=== PATIENT | male | born 1970 | race Caucasian/White ===

== ENCOUNTER 2017-11-25 05:56 | Emergency (ER) | payer OTHER ==
[~2017-11-25] VITALS: Ht 193 cm; Wt 104.3 kg
[2017-11-25] MEDS ORDERED: CLINDAMYCIN 600MG/D5W 50ML 50 ML IV ONE (06:15)
[2017-11-25] MEDS ORDERED: CLINDAMYCIN PHOS 600 MG/ 4 ML VIAL IM ONE (06:30)
== END 2017-11-25 06:45 | disposition home or self-care (01) ==
LOC: FSED 05:56
DX: M79.644 Pain in right finger(s) (principal); L03.011 Cellulitis of right finger; Z86.14 Personal history of Methicillin resistant Staphylococcus aureus infection
CPT/HCPCS: 99283

== ENCOUNTER 2019-06-17 12:49 | Observation (INO) | payer SELFPAY ==
[~2019-06-17] VITALS: Ht 193 cm; Wt 99.8 kg
--- OUTSIDE RECORDS SUMMARY | 2019-06-17 12:53 | XMS REPORT ---
Author Author [facility] Address Unknown Phone Unavailable Care Team Providers Care Medicaid Billing Clerk Name Role Phone Unavailable Unavailable Payers Payer Name Policy Type Policy Number Effective Date Expiration Date Problems This patient has no known problems. Allergies, Adverse Reactions, Alerts Allergy Name Allergy Type Status Severity Reaction(s) Onset Date Inactive Date Treating Clinician Comments No Known Allergies DA Active U 2014-11-13 00:00:00 Medications This patient has no known medications. Results Test Description Test Time Test Comments Text Results Atomic Results Result Comments INTERVERTEBRAL DISC 2018-03-14 16:08:00 RUN DATE: 03/14/18 [facility] PAGE 1 RUN TIME: 1608 Specimen Inquiry RUN USER: INTERFACE PATIENT: EDILIA CERVANTES ERNA LOC: [facility] U #: [id number] AGE/SX: 47/M ROOM: 2049 RE03/12/18REG DR: Jeo Zabala MD : 68 BED: A DIS: 03/13/18 STATUS: DIS Olga TLOC: SPEC #: [id number] RECD: 03/13/18 STATUS: SOUT REQ #: [id number] CHRIS: 03/12/18- SUBM DR: Joe Zabala MD ENTERED: 03/13/18 SP TYPE: INT DISC OTHR DR: Arturo Webb DO ORDERED: GROSS COPIES TO: Arturo Webb DO [address] [place], [place] [id number] Joe Zabala MD [address] [place] [address] PROCEDURES: GROSS (03/14/18-1139) TISSUES: 1. CERVICAL VERTEBRA, NOS - C4-5 DISC 2. 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 It consists of multiple lan-pink to brown fragments of tissue and possible bone measuring 4.0 X 3.4 X 1.0 cm in aggregate. Tanker Serviceman sections are submitted as (1) for decalcification. The second specimen is received fresh labeled with the patient's name and identified as "cervical hardware ID only". It consists of a metallic plate and ten metallic screws. The plate measures 4.6 X 2.0 X 0.3 cm. The plate is labeled "[id number]". Four screws each measure 2.5 cm in length by 0.5 cm in diameter. One screw measures 1.7 cm in length by 0.5 cm in diameter. Four smallest screws each measure 0.5 cm in length by 0.3 cm in diameter. The specimen is for gross identification only. GROSS PERFORMED AT [facility] [address] [place] [id number] [phone] MICROSCOPIC MICROSCOPIC PERFORMED AT [facility] All of the stains, including any controls performed, stain appropriately. [facility] [address] [place] [phone])[phone] PERFORMING SITE Diagnosis performed at: [facility] [address] [place] [address] ---- Signed SIGNATURE ON FILE Telly Guerra 03/14/18 1608 END OF REPORT
[2019-06-17] MEDS ORDERED: CLINDAMYCIN PHOS 900MG/ 50ML 50 ML IV STA (13:07)
[2019-06-17] MEDS ORDERED: MORPHINE SULFATE 2 MG/ML SYR 1ML IV PRN (13:15)
[2019-06-17] MEDS ORDERED: ONDANSETRON HCL INJ 2MG/ML 2ML 2 MG/ML VIAL IV PRN (13:15)
[2019-06-17 13:24] LABS: BASOPHILS % 0.4 % (0.0-1.0); EOSINOPHILS # (AUTO) 0.2 (0.0-0.4); EOSINOPHILS % 2.3 % (0.0-6.0); HEMATOCRIT 39.3 % (38.2-49.6); LYMPHOCYTES % 19.7 % (18.0-39.1); MEAN CORPUSCULAR HEMOGLOBIN 29.2 pg (28-32); MEAN CORPUSCULAR HGB CONC 33.1 g/dL (31-35); MEAN CORPUSCULAR VOLUME 88.3 fL (81-99); MONOCYTES # (AUTO) 0.6 (0.2-0.8); MONOCYTES % 5.6 % (4.4-11.3); NEUTROPHILS # (AUTO) 7.2 (2.1-6.9); NEUTROPHILS % 71.7 % (38.7-80.0); PLATELET COUNT 197 x10e3/uL (140-360); RED BLOOD COUNT 4.45 x10e6/uL (4.3-5.7); RED CELL DISTRIBUTION WIDTH 14.3 % (11.7-14.4)
[2019-06-17] MEDS: MORPHINE SULFATE INJ 4 MG/ML INJ 1ML IV PRN ×2 (13:29→18:10)
[2019-06-17 13:38] LABS: ANION GAP 8.9 mmol/L (8-16); BLOOD UREA NITROGEN 8 mg/dL (7-26); BUN/CREATININE RATIO 9 (6-25); CALCIUM 9.2 mg/dL (8.4-10.2); CARBON DIOXIDE 27 mmol/L (22-29); CHLORIDE 106 mmol/L (98-107); EST GLOMERULAR FILTRATION RATE > 60 ML/MIN (60-); GLUCOSE 187 mg/dL (74-118); POTASSIUM 3.9 mmol/L (3.5-5.1); SODIUM 138 mmol/L (136-145)
--- NOTE | 2019-06-17 14:09 | Diagnostic Imaging Report ---
EXAM: HAND 3+ VIEWS RIGHT DATE: 06/17/2019 1:06 PM INDICATION: Hand pain, crush injury COMPARISON: None FINDINGS: There is no evidence for acute fracture or dislocation. Bony mineralization is within normal limits. No focal lytic or blastic abnormality is identified. The surrounding soft tissues are unremarkable without evidence for radiopaque foreign body. IMPRESSION: No acute radiographic abnormality identified within the right hand. Signed by: Dr. Rene White MD on 06/17/2019 2:07 PM
[2019-06-17 15:38] VITALS: BP 118/63
[2019-06-17] MEDS: VANCOMYCIN 1GM/NS 250 ML 250 ML IV SCH (18:10)
[2019-06-17] MEDS ORDERED: SODIUM CHLORIDE 0.9% 250ML 250 ML ONE (18:11)
--- NOTE | 2019-06-17 18:50 | NUR ---
Pt received from ER. Pt is aox4 and able to verbalize needs. Pt is ambulatory. He is being admitted for cellulitis to right hand. Dr. Eisenberg has consulted and notified. Notified Dr. Durant of pt arrival.
[2019-06-17 21:26] VITALS: BP 128/63
[2019-06-17 21:44] VITALS: BP 128/63
[2019-06-18] VITALS (7 sets, daily range): BP systolic 120–147; BP diastolic 58–103
[2019-06-18 06:15] LABS: BASOPHILS % 0.5 % (0.0-1.0); EOSINOPHILS # (AUTO) 0.3 (0.0-0.4); EOSINOPHILS % 3.9 % (0.0-6.0); HEMATOCRIT 38.5 % (38.2-49.6); HEMOGLOBIN 12.4 g/dL (14.0-18.0); LYMPHOCYTES # (AUTO) 2.5 (1.0-3.2); LYMPHOCYTES % 30.3 % (18.0-39.1); MEAN CORPUSCULAR HEMOGLOBIN 28.7 pg (28-32); MEAN CORPUSCULAR HGB CONC 32.2 g/dL (31-35); MEAN CORPUSCULAR VOLUME 89.1 fL (81-99); MONOCYTES # (AUTO) 0.7 (0.2-0.8); MONOCYTES % 9.1 % (4.4-11.3); NEUTROPHILS # (AUTO) 4.6 (2.1-6.9); PLATELET COUNT 197 x10e3/uL (140-360); RED BLOOD COUNT 4.32 x10e6/uL (4.3-5.7); RED CELL DISTRIBUTION WIDTH 14.6 % (11.7-14.4)
[2019-06-18] MEDS: VANCOMYCIN 1GM/NS 250 ML 250 ML IV SCH ×2 (06:39→18:36)
--- NOTE | 2019-06-18 07:30 | NUR ---
bedside shift report received from night order selector RN. pt awake, alert, no complaints at this time. no signs of distress.
--- NOTE | 2019-06-18 15:45 | NUR ---
GAVE PACKET OF INFORMATION WITH COMM[employer]ITY [employer] FOR ASSISTANCE WITH LOW TO NO INCOME TO PATIENT. RESOURCES THAT PATIENT MAY BE ABLE TO FOLLOW UP UPON DISCHARGE. PT EDUCATED ON EACH RESOURCE AND UNDERSTANDING HOW TO FOLLOW UP TO SEE IF QUALIFIED FOR EACH RESOURCE.
--- NOTE | 2019-06-18 16:06 | Consultation ---
DATE OF CONSULTATION: 06/18/2019 Physician requesting a consultation is Dr. Orlando Durant. Consultation requested to Ashkan Castle MD, Hand Surgery. HISTORY OF PRESENT ILLNESS: The patient is a 48-year-old right-hand dominant male, who states that on Saturday, June 13, he sustained a laceration on the right index finger MPJ on a stainless steel/metal gate. The patient states that he cleansed the area and then the following day, he noticed that it was somewhat red and swollen. Over the past several days, the redness and the swelling have increased and the patient noticed a red streak going up the hand and the arm. The patient was seen in the emergency room yesterday, where he was diagnosed with lymphangitis. The patient was admitted and started on intravenous antibiotics and consultation regarding optimal surgical management is now requested. LABORATORY DATA: White blood cell count on admission was 9.97 and today is 8.15. Radiographs show no acute or chronic bony abnormalities. No foreign bodies. PAST MEDICAL HISTORY: Noncontributory to the current problem. PAST SURGICAL HISTORY: Noncontributory to the current problem. PHYSICAL EXAMINATION: CURRENT VITAL SIGNS: On the patient are that he is afebrile and the BP is 135/85. EXTREMITIES: There is a dry adherent eschar over the dorsal aspect of the right index finger MPJ. It is dry adherent and there is no separation nor purulence. There is some surrounding erythema and some swelling over the dorsum of the MPJ. Flexion and extension are intact. There is no erythematous streaking. This morning, the patient states that it resolved overnight. IMPRESSION: Lymphangitis, right upper extremity. PLAN: The patient is currently on IV antibiotics and appears to be clinically improving. There is no evidence of abscess formation nor any need for surgical drainage at this time. Please re-consult if necessary. Your expression of professional confidence is greatly appreciated. Ashkan Castle MD ER/MODL /[id number]
[2019-06-18] MEDS: MORPHINE SULFATE INJ 4 MG/ML INJ 1ML IV PRN (22:04)
[2019-06-19 00:39] VITALS: BP 124/75
[2019-06-19 04:18] VITALS: BP 106/73
[2019-06-19] MEDS: VANCOMYCIN 1GM/NS 250 ML 250 ML IV SCH (06:45)
[2019-06-19 07:26] VITALS: BP 121/79
--- NOTE | 2019-06-19 08:03 | NUR ---
BEDSIDE SHIFT REPORT RECEIVED FROM ELECTRICAL PROSPECTING OPERATOR RN. PT SLEEPING, EASILY AROUSED, ORIENTED X3, IN STABLE CONDITION. NO SIGNS OF DISTRESS. NO COMPLAINTS AT THIS TIME. WILL CONTINUE TO MONITOR.
[2019-06-19 08:05] VITALS: BP 121/79
[2019-06-19] MEDS ORDERED: DOXYCYCLINE HY100 MG PO (09:56)
== END 2019-06-19 10:41 | disposition home or self-care (01) ==
LOC: ER 12:49 → ERHOLD 13:09 → MED/SURG3 15:41
DX: L03.123 Acute lymphangitis of right upper limb (principal); L03.113 Cellulitis of right upper limb; R59.0 Localized enlarged lymph nodes; Z72.0 Tobacco use; Z82.49 Family history of ischemic heart disease and other diseases of the circulatory system
CPT/HCPCS: 36415 ×3; 73130; 80048; 80202; 85025 ×2; 96360; 99284; G0378 ×3; J2270 ×2; J2405; J3370 ×3; J7050

== ENCOUNTER 2021-07-13 15:08 | Observation (INO) | payer OTHER ==
[~2021-07-13] VITALS: Ht 193 cm; Wt 99.8 kg
[~2021-07-13 15:08] MED LIST: DOXYCYCLINE HY100 MG PO
[2021-07-13 15:32] LABS: BASOPHILS # (AUTO) 0.1 (0.0-0.1); EOSINOPHILS # (AUTO) 0.1 (0.0-0.4); EOSINOPHILS % 1.1 % (0.0-6.0); HEMATOCRIT 44.6 % (38.2-49.6); HEMOGLOBIN 15.1 g/dL (14.0-18.0); LYMPHOCYTES # (AUTO) 2.3 (1.0-3.2); MEAN CORPUSCULAR HGB CONC 33.9 g/dL (31-35); MEAN CORPUSCULAR VOLUME 85.8 fL (81-99); MONOCYTES # (AUTO) 0.8 (0.2-0.8); MONOCYTES % 8.1 % (4.4-11.3); NEUTROPHILS # (AUTO) 6.9 (2.1-6.9); NEUTROPHILS % 67.6 % (38.7-80.0); PLATELET COUNT 183 x10e3/uL (140-360); RED CELL DISTRIBUTION WIDTH 13.5 % (11.7-14.4)
[2021-07-13] MEDS ORDERED: SODIUM CHLORIDE 0.9% 1000ML 1,000 ML IV ONE ×2 (15:45→16:30)
[2021-07-13] MEDS: ONDANSETRON HCL INJ 2MG/ML 2ML 2 MG/ML VIAL IV PRN ×2 (15:49→16:39)
[2021-07-13 15:54] LABS: ALBUMIN 4.2 g/dL (3.5-5.0); ALBUMIN/GLOBULIN RATIO 1.4 (0.8-2.0); ANION GAP 12.1 mmol/L (8-16); CALCIUM 10.6 mg/dL (8.4-10.2); CREATININE, SERUM 1.47 mg/dL (0.72-1.25); POTASSIUM 4.1 mmol/L (3.5-5.1)
[2021-07-13] MEDS ORDERED: SODIUM CHLORIDE 0.9% 50ML 50 ML ONE (16:28)
[2021-07-13] MEDS ORDERED: IOPAMIDOL 370 MG/ML 200 ML INFUS..BTL INJ ONE (16:28)
[2021-07-13] MEDS ORDERED: Morphine 4mg Syringe 4 MG/ML INJ IV PRN (17:00)
[2021-07-13] MEDS ORDERED: METOCLOPRAMIDE HCL 10 MG TAB PO ONE (17:00)
[2021-07-13] MEDS ORDERED: ONDANSETRON HCL INJ 2MG/ML 2ML 2 MG/ML VIAL IV PRN (17:15)
[2021-07-13] MEDS ORDERED: SODIUM CHLORIDE 0.9% 1000ML 1,000 ML IV SCH (17:15)
[2021-07-13] MEDS ORDERED: HYDROMORPHONE 1MG/1ML INJ IV PRN (17:15)
[2021-07-13 18:15] VITALS: BP 132/89
[2021-07-13] MEDS ORDERED: CLONIDINE HCL 0.1 MG TAB PO PRN (18:15)
[2021-07-13] MEDS ORDERED: AMBIEN10 MG PO (18:19)
[2021-07-13] MEDS ORDERED: ADDERALL 20 MG20 MG PO (18:21)
[2021-07-13] MEDS: SODIUM BICARBONATE 8.4% 50 ML in SODIUM CHLORIDE 0.45% 1,000 ML IV SCH (18:39)
[2021-07-13 20:08] VITALS: BP 126/89
[2021-07-13 20:12] VITALS: BP 126/89
[2021-07-14] MEDS: SODIUM BICARBONATE 8.4% 50 ML in SODIUM CHLORIDE 0.45% 1,000 ML IV SCH ×2 (00:10→07:55)
[2021-07-14 00:12] VITALS: BP 136/98
[2021-07-14 03:49] VITALS: BP 133/95
[2021-07-14 05:50] LABS: ANION GAP 13.9 mmol/L (8-16); CALCIUM 8.7 mg/dL (8.4-10.2); CREATININE, SERUM 1.27 mg/dL (0.72-1.25); POTASSIUM 3.9 mmol/L (3.5-5.1)
[2021-07-14] MEDS ORDERED: ONDANSETRON HCL 4 MG ORAL DISINTEGRATING TAB PO PRN (06:30)
[2021-07-14 08:00] VITALS: BP 129/94
[2021-07-14 08:13] VITALS: BP 126/89
[2021-07-14] MEDS ORDERED: ACETAMINOPHEN 325 MG TAB PO PRN (10:00)
[2021-07-14 11:34] VITALS: BP 134/94
== END 2021-07-14 12:30 | disposition home or self-care (01) ==
LOC: ER 15:20 → INTOOBSV 17:08 → ERHOLD 17:08 → MED/SURG 18:13
PROVIDERS: ADMIT Internal Medicine; ATTEND Internal Medicine
DX: N17.9 Acute kidney failure, unspecified (principal); M62.82 Rhabdomyolysis; E86.0 Dehydration; K21.9 Gastro-esophageal reflux disease without esophagitis; Z72.89 Other problems related to lifestyle; F12.90 Cannabis use, unspecified, uncomplicated; I10 Essential (primary) hypertension; Z86.14 Personal history of Methicillin resistant Staphylococcus aureus infection; Z80.9 Family history of malignant neoplasm, unspecified; Z82.49 Family history of ischemic heart disease and other diseases of the circulatory system; Z20.822 Contact with and (suspected) exposure to COVID-19
CPT/HCPCS: 36415; 74177; 80048; 80053; 82150; 82550; 83690; 84484; 85025; 94799; 99284; G0378; J2270; J2405; J7030; Q9967; U0002